=== PATIENT | male | born 1970 | race Caucasian/White ===

== ENCOUNTER 2016-12-31 12:52 | Emergency (ER) | payer OTHER ==
[2016-12-31 14:24] LABS: BASOPHIL 0.4 % (0-2); EOSINOPHIL 0.4 % (0-5); HCT 44.7 % (42.0-52.0); MCH 30.8 pg (25.0-31.0); MCHC 35.8 g/dL (32.0-36.0); MONOCYTE 6.4 % (0-12); MPV 10.1 fL (6.0-9.5); NEUTROPHIL 73.8 % (41-80); PLT 144 K/uL (150-400); WBC 6.9 K/uL (4.0-10.5)
[2016-12-31 14:44] LABS: ALBUMIN 4.6 g/dL (3.5-5.0); BILIRUBIN - TOTAL 1.4 mg/dL (0.1-1.0); CREATININE 0.9 mg/dL (0.7-1.2); GLOBULIN (CALCULATION) 2.6 g/dL (2.2-4.2); POTASSIUM 4.4 mmol/L (3.5-5.1); TOTAL PROTEIN 7.2 g/dL (6.4-8.3)
== END 2016-12-31 15:20 | disposition home or self-care (01) ==
LOC: FER 12:52
PROVIDERS: Internal Medicine
DX: S13.4XXA Sprain of ligaments of cervical spine, initial encounter (principal)
CPT/HCPCS: 36415; 71020; 72050; 80053; 82150; 83690; 84484; 85025; 93005